=== PATIENT | female | born 2000 | race Two or more races ===

== ENCOUNTER 2025-02-06 12:36 | Emergency (ER) | payer OTHER ==
[~2025-02-06] VITALS: Ht 162.6 cm; Wt 81.6 kg
[2025-02-06] MEDS ORDERED: ETODOLAC200 MG PO (12:40)
[2025-02-06] MEDS ORDERED: VERAPAMIL ER100 MG PO (12:40)
[2025-02-06] MEDS ORDERED: SPRINTEC 28 DA1 EAC1 PO (12:41)
[2025-02-06] MEDS ORDERED: B12 ACTIVE1000 MCG PO (12:41)
[2025-02-06] MEDS ORDERED: ACID REDUCER20 M1 PO (12:41)
[2025-02-06] MEDS ORDERED: 0.9 % SODIUM CHLORIDE 1,000 ML IV SCH (13:15)
[2025-02-06 13:36] LABS: BASO % 0.5 % (0.1-1.2); EOS # 0.11 (0.04-0.54); EOS % 1.4 % (0.7-7.0); LYMPH # 1.60 (1.18-3.74); LYMPH % 19.7 % (19.3-53.1); MEAN PLATELET VOLUME 9.70 fl (9.4-12.4); MONO # 0.50 (0.24-0.82); MONO % 6.2 % (4.7-12.5); NEUT # 5.84 (1.56-6.13); NEUT % 72.0 % (34.0-71.1); RED CELL DISTRIBUTION WIDTH 12.6 % (11.6-14.4)
[2025-02-06 14:24] LABS: BUN CREA RATIO 12.0 (7.0-25.0); CREATININE SERUM 0.68 mg/dL (0.55-1.02); GFR 106.3; GLUCOSE FASTING 96.0 mg/dL (65-100); OSMOLALITY SERUM 279.0 MOSM/KG (275-295); TSH 1.95 uIU/mL (0.358-3.74)
[2025-02-06 14:46] LABS: URINE APPEARANCE Clear; URINE BILIRRUBIN Negative (NEGATIVE); URINE BLOOD Small; URINE GLUCOSE Negative (NEGATIVE); URINE KETONE Negative (NEGATIVE); URINE LEUKOCYTE Trace; URINE NITRATE Negative; URINE PROTEIN Negative (NEGATIVE); URINE UROBILINOGEN 0.2 E.U./dl
[2025-02-06 14:50] LABS: URINE BACTERIA 652.7 uL (0.0-1933); URINE EPITHELIAL CELLS 31.5 uL (0.0-38.8); URINE RBC 46.7 uL (0.0-20.8); URINE WBC 28.4 uL (0.0-23.2)
[2025-02-06 15:03] LABS: URINE CAST 0.14 uL (0.0-1.40); URINE COLOR Yello
== END 2025-02-06 16:08 | disposition home or self-care (01) ==
LOC: ER 12:36
PROVIDERS: Emergency Medicine
DX: R55 Syncope and collapse (principal); R42 Dizziness and giddiness